=== PATIENT | male | born 2005 | race Hispanic/Latino ===

== ENCOUNTER 2025-01-26 14:14 | Emergency (ER) | payer BC ==
[~2025-01-26] VITALS: Ht 182.9 cm; Wt 92.6 kg
[2025-01-26 14:23] VITALS: PULSE 77; RESP 18; TEMP 98.9
[2025-01-26] MEDS ORDERED: PROTONIX20 MG PO (14:40)
[2025-01-26 14:52] VITALS: BP 140/62; RESP 20; O2SAT 99
== END 2025-01-26 14:47 | disposition home or self-care (01) ==
LOC: FSED 14:18
DX: R05.9 Cough, unspecified (principal); R06.02 Shortness of breath; K21.9 Gastro-esophageal reflux disease without esophagitis
CPT/HCPCS: 99282